=== PATIENT | female | born 1995 ===

== ENCOUNTER 2018-08-18 02:52 | Emergency (ER) | payer SELFPAY ==
--- NOTE | 2018-08-18 02:55 | C.PDOC ---
Addendum entered and electronically signed by Radha Perez MD 08/18/18 07:45: Against Medical Advice - AMA Patient Left Against Medical Advice: The patient declines ultrasound and further treatment, and wishes to leave the Emergency Department. This action is against my medical advice. This decision was made with informed refusal. The patient was told that further diagnostic tests are necessary. Explanation of the reasons why were discussed. The risks of leaving were explained to the patient and include, but are not limited to, worsening of known or currently unknown conditions, permanent d isability and from undiagnosed or untreated conditions. The patient has the capacity to make this informed decision and understands my explanation of the current medical problem and risks of leaving. The patient voluntarily accepts these risks and signed an AMA form documenting our conversation. The patient was given the opportunity to ask questions and reconsider. The patient was encouraged to return to the Emergency Department at any time for further care. 08/18/18 07:43 Called to patient bedside, she states that she has an immigration meeting at 0830 and wishes to leave the hospital. Ultrasound has not been done yet. AMA paperwork signed. Original Note: History Of Present Illness 22 year old female presents to the ER with a complaint of RUQ pain that began tonight. Patient was seen in the hospital on 07/29/18 for similar complaints, at that time she was found to have some gallstones and with an initial HCG of 14.48, repeat HCG 2 days later was 9.67. MRCP was done and showed dilated common bile duct with multiple small gall stones, patient elected for no surgery. Denies fever, chills, nausea, or vomiting. Time Seen by Provider: 08/18/18 02:55 History Per: Patient History/Exam Limitations: no limitations Onset/Duration Of Symptoms: Hrs Current Symptoms Are (Timing): Still Present Severity: Moderate Pain Scale Rating Of: 4 Location Of Pain/Discomfort: RUQ Radiation Of Pain To:: None Quality Of Discomfort: Unable To Describe Associated Symptoms: denies: Fever, Chills, Nausea, Vomiting Exacerbating Factors: None Alleviating Factors: None Recent travel outside of the [place]: No Abnormal Vaginal Bleeding: No Past Medical History Reviewed: Historical Data, Nursing Documentation, Vital Signs Family History: States: No Known Family Hx - Social History Hx Alcohol Use: No Hx Substance Use: No - Immunization History Hx Tetanus Toxoid Vaccination: No Hx Influenza Vaccination: No Hx Pneumococcal Vaccination: No Review Of Systems Constitutional: Negative for: Fever, Chills Cardiovascular: Negative for: Chest Pain, Palpitations Respiratory: Negative for: Cough, Shortness of Breath Gastrointestinal: Positive for: Abdominal Pain. Negative for: Nausea, Vomiting Neurological: Negative for: Weakness, Numbness Physical Exam - Physical Exam Appears: Non-toxic Skin: Warm, Dry Head: Normacephalic Oral Mucosa: Moist Chest: Symmetrical, No Tenderness Cardiovascular: Rhythm Regular Respiratory: No Rales, No Rhonchi, No Wheezing Gastrointestinal/Abdominal: Soft, Tenderness (RUQ), No Guarding, No Rebound Neurological/Psych: Oriented x3 ED Course And Treatment - Laboratory Results Result Diagrams: 08/18/18 03:20 08/18/18 03:20 O2 Sat by Pulse Oximetry: 99 Pulse Ox Interpretation: Normal Progress Note: Blood work and urinalysis ordered. Pepcid, zofran, and IV fluids administered. Disposition Counseled Patient/Family Regarding: Studies Performed, Diagnosis - Disposition Disposition Time: 02:55 Condition: FAIR - Clinical Impression Clinical Impression: Abdominal pain, Cholelithiasis - Scribe Statement The provider has reviewed the documentation as recorded by the Scribe Haseeb Queen All medical record entries made by the Scribe were at my direction and personally dictated by me. I have reviewed the chart and agree that the record accurately reflects my personal performance of the history, physical exam, medical decision making, and the department course for this patient. I have also personally directed, reviewed, and agree with the discharge instructions and disposition. Physician Patient Turnover Patient Signed Over To: Radha Perez Handoff Comments: pending US and dispo
[2018-08-18] MEDS ORDERED: Sodium Chloride 0.9% 1,000 ML IV ONE (02:59)
[2018-08-18 03:00] VITALS: BMI 25.1
[2018-08-18] MEDS ORDERED: Sodium Chloride 0.9% 1,000 ML ONE (03:17)
[2018-08-18 03:26] LABS: SQUAMOUS EPITHIAL 4 /hpf (0-5); URINE BACTERIA RARE (<OCC); URINE BILIRUBIN NEGATIVE (NEGATIVE); URINE BLOOD NEGATIVE (NEGATIVE); URINE CLARITY Clear (Clear); URINE COLOR Yellow (YELLOW); URINE GLUCOSE (UA) NORMAL (Normal); URINE LEUKOCYTE ESTERASE NEG Leu/uL (Negative); URINE PROTEIN NEGATIVE (NEGATIVE); URINE UROBILINOGEN NORMAL mg/dL (0.2-1.0)
[2018-08-18 03:28] LABS: BASO # 0.1 K/uL (0.0-0.2); BASO % 0.6 % (0.0-2.0); EOS # 0.5 K/uL (0.0-0.7); EOS % 5.5 % (0.0-4.0); HEMOGLOBIN 12.9 g/dL (11.0-16.0); LYMPH # 2.8 K/uL (1.0-4.3); LYMPH % 28.5 % (20.0-40.0); MEAN CELL VOLUME 83.4 fL (81.0-99.0); MEAN CORPUSCULAR HEMOGLOBIN 28.4 pg (27.0-31.0); MEAN CORPUSCULAR HGB CONC 34.1 g/dL (33.0-37.0); MONO # 0.5 K/uL (0.0-0.8); MONO % 4.5 % (0.0-10.0); NEUT # 6.1 K/uL (1.8-7.0); NEUT % 60.9 % (50.0-75.0); RBC 4.53 Mil/uL (3.80-5.20); RED CELL DISTRIBUTION WIDTH 14.7 % (11.5-14.5)
[2018-08-18 03:31] LABS: INR 1.1; PROTHROMBIN TIME 11.5 SECONDS (9.7-12.2)
[2018-08-18 03:54] LABS: ALB/GLOB RATIO 1.2 (1.0-2.1); ALBUMIN 4.3 g/dL (3.5-5.0); ALT/SGPT 90 U/L (9-52); AST/SGOT 114 U/L (14-36); BLOOD UREA NITROGEN 21 mg/dL (7-17); CALCIUM 9.2 mg/dl (8.6-10.4); GFR NON-AFRICAN AMERICAN > 60; LIPASE 130 U/L (23-300)
[2018-08-18 07:39] VITALS: BP 103/65; PULSE 69; RESP 16; TEMP 97.8; O2SAT 100
== END 2018-08-18 07:44 | disposition left against medical advice (07) ==
LOC: C.ER 02:52
DX: K80.20 Calculus of gallbladder without cholecystitis without obstruction (principal); R10.11 Right upper quadrant pain
CPT/HCPCS: 80053; 81001; 83690; 84702; 85025; 85610; 85730; 96361; 96374; 96375; 99284; J2270; J2405; J7030

== ENCOUNTER 2019-02-09 21:00 | Emergency (ER) | payer SELFPAY ==
[2019-02-09 21:01] VITALS: BMI 25.1
[2019-02-09 22:10] LABS: SQUAMOUS EPITHIAL 19 /hpf (0-5); URINE BACTERIA OCC (<OCC); URINE BILIRUBIN NEGATIVE (NEGATIVE); URINE BLOOD NEGATIVE (NEGATIVE); URINE CLARITY Hazy (Clear); URINE COLOR Yellow (YELLOW); URINE GLUCOSE (UA) NORMAL (Normal); URINE LEUKOCYTE ESTERASE NEG Leu/uL (Negative); URINE PROTEIN NEGATIVE (NEGATIVE)
--- NOTE | 2019-02-09 22:38 | C.PDOC ---
History Of Present Illness 23 year old female presents to the ED c/o mid suprapubic abdominal pain that has been intermittent for the past week. Patient states her LMP was on 01/14/19. Patient has not had a NURSE OFFICE follow up since the of her child 4 years ago. Patient is sexually active using protection. Patient denies fever, chills, nausea, vomit, diarrhea, constipation, dysuria, hematuria, vaginal bleeding, vaginal discharge. Time Seen by Provider: 02/09/19 21:51 Chief Complaint (Nursing): Abdominal Pain History Per: Patient History/Exam Limitations: no limitations Onset/Duration Of Symptoms: Days, Intermittent Episodes Current Symptoms Are (Timing): Still Present Location Of Pain/Discomfort: Suprapubic Quality Of Discomfort: "Pain" Associated Symptoms: denies: Nausea, Vomiting, Diarrhea, Constipation, Urinary Symptoms Recent travel outside of the [place]: No Additional History Per: Patient Abnormal Vaginal Bleeding: No Last Menstral Period: 01/14/19 Past Medical History Reviewed: Historical Data, Nursing Documentation, Vital Signs Vital Signs: Last Vital Signs Temp 97 F L 02/09/19 21:25 Pulse 71 02/09/19 21:25 Resp 14 02/09/19 21:25 BP 112/62 02/09/19 21:25 Pulse Ox 99 02/09/19 21:25 - Medical History PMH: No Chronic Diseases Surgical History: Cholecystectomy Family History: States: Unknown Family Hx - Social History Hx Alcohol Use: Yes Hx Substance Use: No - Immunization History Hx Tetanus Toxoid Vaccination: No Hx Influenza Vaccination: No Hx Pneumococcal Vaccination: No Review Of Systems Constitutional: Negative for: Fever, Chills Cardiovascular: Negative for: Chest Pain Respiratory: Negative for: Shortness of Breath Gastrointestinal: Positive for: Abdominal Pain. Negative for: Nausea, Vomiting, Diarrhea, Constipation Genitourinary: Negative for: Vaginal Discharge, Vaginal Bleeding Musculoskeletal: Negative for: Back Pain Skin: Negative for: Rash Neurological: Negative for: Weakness, Numbness Physical Exam - Physical Exam Appears: Non-toxic, No Acute Distress Skin: Normal Color, Warm, Dry Head: Atraumatic, Normacephalic Eye(s): bilateral: Normal Inspection Oral Mucosa: Moist Neck: Normal ROM, Supple Chest: Symmetrical Cardiovascular: Rhythm Regular Respiratory: Normal Breath Sounds, No Rales, No Rhonchi Gastrointestinal/Abdominal: Soft, Tenderness (mid suprapubic), No Guarding, No Rebound Back: No CVA Tenderness Pelvic: Normal External Exam, Normal Speculum Exam, Normal Bimanual Exam, No Vaginal Bleeding, No Vaginal Discharge, No Cervical Motion Tenderness, No Adnexal Tenderness, No Tender Uterus Extremity: Normal ROM, No Tenderness, No Swelling Neurological/Psych: Oriented x3, Normal Speech, Normal Cognition Gait: Steady ED Course And Treatment - Laboratory Results Lab Results: Urine Color Yellow (YELLOW) 02/09/19 21:57 Urine Clarity Hazy (Clear) 02/09/19 21:57 Urine pH 6.0 (5.0-8.0) 02/09/19 21:57 Ur Specific [place] 1.020 (1.003-1.030) 02/09/19 21:57 Urine Protein Negative mg/dL (NEGATIVE) 02/09/19 21:57 Urine Glucose (UA) Normal mg/dL (Normal) 02/09/19 21:57 Urine Ketones Negative mg/dL (NEGATIVE) 02/09/19 21:57 Urine Blood Negative (NEGATIVE) 02/09/19 21:57 Urine Nitrate Negative (NEGATIVE) 02/09/19 21:57 Urine Bilirubin Negative (NEGATIVE) 02/09/19 21:57 Urine Urobilinogen 4.0 mg/dL (0.2-1.0) H 02/09/19 21:57 Ur Leukocyte Esterase Neg Aydee/uL (Negative) 02/09/19 21:57 Urine WBC (Auto) 3 /hpf (0-5) 02/09/19 21:57 Urine RBC (Auto) 2 /hpf (0-3) 02/09/19 21:57 Ur Squamous Epith Cells 19 /hpf (0-5) H 02/09/19 21:57 Urine Bacteria Occ (<OCC) H 02/09/19 21:57 Urine HCG, Qual Negative (NEGATIVE) 02/09/19 21:57 Urine HCG, Qual Negative (NEGATIVE) 02/09/19 21:57 O2 Sat by Pulse Oximetry: 99 (ON RA) Pulse Ox Interpretation: Normal Progress Note: Plan: - Motrin 600 mg PO. - UA. - urine culture. Patient reports improvement to pain after medications were given .Patient's urine WNL, patient is advised to follow up with NURSE OFFICE for further evaluation. 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 - Scribe Statement The provider has reviewed the documentation as recorded by the Scribe Eliot Vidal All medical record entries made by the Scribe were at my direction and personally dictated by me. I have reviewed the chart and agree that the record accurately reflects my personal performance of the history, physical exam, medical decision making, and the department course for this patient. I have also personally directed, reviewed, and agree with the discharge instructions and disposition.
[2019-02-09 22:59] VITALS: BP 110/63; PULSE 70; RESP 16; TEMP 97.8
[2019-02-09 23:17] VITALS: O2SAT 99
== END 2019-02-09 22:58 | disposition home or self-care (01) ==
LOC: C.ER 21:00
DX: R10.2 Pelvic and perineal pain (principal)

== ENCOUNTER 2019-02-23 20:28 | Emergency (ER) | payer SELFPAY ==
[2019-02-23 20:37] VITALS: BMI 24.2
[2019-02-23 20:38] VITALS: BP 122/78; PULSE 95; TEMP 99.6; O2SAT 98
[2019-02-23] MEDS ORDERED: Amoxicillin-Clav 875-125 mg Tab PO STA (21:02)
--- NOTE | 2019-02-23 21:08 | C.PDOC ---
History Of Present Illness 23 y/o female comes in to ED complaining of painful sore throat for the past 2 days, worse today. Also complains of subjective fever and chills. Denies any cough, nasal congestion, SOB, chest pain, nausea, vomiting, or other symptoms. Patient has tried taking ibuprofen but without any relief. Time Seen by Provider: 02/23/19 20:39 Chief Complaint (Nursing): ENT Problem History Per: Patient History/Exam Limitations: no limitations Onset/Duration Of Symptoms: Days Current Symptoms Are (Timing): Still Present Past Medical History Reviewed: Historical Data, Nursing Documentation, Vital Signs Vital Signs: Last Vital Signs Temp 99.6 F 02/23/19 20:36 Pulse 95 H 02/23/19 20:36 Resp 18 02/23/19 20:36 BP 122/78 02/23/19 20:36 Pulse Ox 98 02/23/19 20:36 Surgical History: Cholecystectomy Family History: States: No Known Family Hx - Social History Hx Alcohol Use: Yes Hx Substance Use: No - Immunization History Hx Tetanus Toxoid Vaccination: No Hx Influenza Vaccination: No Hx Pneumococcal Vaccination: No Review Of Systems Constitutional: Positive for: Fever (subjective), Chills ENT: Positive for: Throat Pain (sore throat). Negative for: Nose Congestion Cardiovascular: Negative for: Chest Pain Respiratory: Negative for: Cough, Shortness of Breath Gastrointestinal: Negative for: Nausea, Vomiting Physical Exam - Physical Exam Appears: Non-toxic, No Acute Distress Skin: Warm, Dry Head: Atraumatic Eye(s): bilateral: Normal Inspection Ear(s): Bilateral: Normal Oral Mucosa: Moist Throat: Erythema, Exudate (bilaterally), Other (tonsils enlarged) Neck: Supple Cardiovascular: Rhythm Regular, No Murmur Respiratory: Normal Breath Sounds, No Rales, No Rhonchi, No Wheezing Extremity: Bilateral: Atraumatic, Normal ROM Neurological/Psych: Oriented x3 ED Course And Treatment O2 Sat by Pulse Oximetry: 98 (RA) Pulse Ox Interpretation: Normal Medical Decision Making Medical Decision Making: Plan: --Augmentin --Tylenol Disposition Counseled Patient/Family Regarding: Diagnosis, Need For Followup, Rx Given - Disposition Referrals: [facility] [Outside] [facility] [Outside] Disposition: HOME/ ROUTINE Disposition Time: 21:05 Condition: STABLE Additional Instructions: Continue Augmentin and Tylenol as prescribed start salt water gargles 4 times a day follow up with PMD in 1-2 days Return to the ED if symptoms worsen Prescriptions: Acetaminophen [Tylenol] 325 mg PO Q6 PRN #30 capsule PRN Reason: Fever >100.4 F Amoxicillin/Clavulanate [Augmentin 875 MG-125 MG] 1 tab PO BID #19 tab Instructions: Strep Throat (DC) Forms: [employer] 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 - Scribe Statement The provider has reviewed the documentation as recorded by the Elvieibwill Harris All medical record entries made by the Kevin were at my direction and personally dictated by me. I have reviewed the chart and agree that the record accurately reflects my personal performance of the history, physical exam, medical decision making, and the department course for this patient. I have also personally directed, reviewed, and agree with the discharge instructions and disposition.
[2019-02-23] MEDS ORDERED: Amoxicillin-Clav 875-125 mg Tab PO ONE (21:09)
[2019-02-23 21:23] VITALS: RESP 20
== END 2019-02-23 21:22 | disposition home or self-care (01) ==
LOC: C.ER 20:28
DX: J02.9 Acute pharyngitis, unspecified (principal)